=== PATIENT | male | born 1950 | race Hispanic/Latino ===

== ENCOUNTER → 2021-09-21 | Outpatient (CLI) | payer OTHER | END | disposition home or self-care (01) | LOC: RAH 11:46 | PROVIDERS: ATTEND Internal Medicine | DX: S92.001S Unspecified fracture of right calcaneus, sequela (principal); M19.071 Primary osteoarthritis, right ankle and foot; M77.31 Calcaneal spur, right foot; M79.89 Other specified soft tissue disorders; E11.65 Type 2 diabetes mellitus with hyperglycemia; X58.XXXS Exposure to other specified factors, sequela | CPT/HCPCS: 73610; 73630 ==